=== PATIENT | female | born 1985 | race Caucasian/White ===

== ENCOUNTER 2023-04-09 01:18 | Emergency (ER) | payer OTHER, SELFPAY ==
[2023-04-09 01:27] VITALS: BP 193/97; PULSE 99; RESP 20; TEMP 36.8; O2SAT 97
[2023-04-09 01:35] VITALS: BP 180/105
[2023-04-09 01:41] VITALS: PULSE 86
--- NOTE | 2023-04-09 01:45 | ECG_ITS ---
[facility] Test Date: 2023-04-09 Pat Name: DARVIN ACOSTA Department: Room: - Gender: Female Family Practice Doctor: : 1985 Requested By: Matt Simons Order Number: [id number] Reading MD: BLAKE LEDESMA Measurements Intervals [place] Rate: 86 P: 63 HI: 164 QRS: 72 QRSD: 82 T: -55 QT: 334 QTc: 378 Interpretive Statements 1100 Sinus rhythm 4664 Twave abnormality, possible inferolateral ischemia 9150 abnormal ECG No previous ECG available for comparison Electronically Signed On 04-10-2023 10:51:44 EST by BLAKE LEDESMA
--- NOTE | 2023-04-09 01:46 | XR_ITS ---
The [address] [address] Patient Name: DARVIN ACOSTA MRN: [id number] date: 1985 Sex: F Assigned Patient Location: ER Current Patient Location: ER Accession/Order Number: [id number] Exam Date: 04/09/2023 02:20 Report Date: 04/09/2023 02:43 At the request of: PRISCA DE LA TORRE Procedure: XR chest 2V EXAM: XR chest 2V HISTORY: shortness of breath COMPARISON: None. TECHNIQUE: 2 views of the chest were obtained. FINDINGS: The cardiac silhouette is normal in size. There is interstitial prominence. There is no significant pneumothorax or pleural effusion. No acute osseous abnormality is seen. XR/XR chest 2V IMPRESSION: 1. Interstitial prominence which could represent edema and/or bronchitis. Electronically authenticated by: Osvaldo MCMANUS Date: 04/09/2023 02:43
--- NOTE | 2023-04-09 01:47 | ED_ITS ---
HPI - SOB/Dyspnea General Chief Complaint: Shortness of Breath/Dyspnea Stated Complaint: sob Time Seen by Provider: 04/09/23 01:29 Source: patient Mode of arrival: walk-in Limitations: no limitations History of Present Illness HPI Narrative: 3 days of shortness of breath - worse with exertion. Patient is an asthmatic - she has been using her inhaler without any improvement. No fever or chills. No upper respiratory symptoms. Rare, dry cough. No GI or symptoms. She googled the symptoms and think I have a pulmonary embolism. She is a non- smoker, does not take BCPs, no prior history of DVT or PE. No family history of factor V Leiden, DVT or PE. No prolonged inactivity or long drives or airlines flights in the last 2 months. She stopped taking her chlorthalidone. Related Data Home Medications Medication Instructions Recorded Confirmed chlorthalidone 25 mg tablet mg 04/09/23 lisdexamfetamine 40 mg capsule mg 04/09/23 (Vyvanse) losartan 50 mg tablet mg 04/09/23 lurasidone 60 mg tablet mg 04/09/23 meloxicam 15 mg tablet mg 04/09/23 potassium chloride 10 mEq meq PO 04/09/23 tablet,extended release Previous Rx's Medication Instructions Recorded prednisone 20 mg tablet 40 mg (2 x 20 mg) PO DAILY #10 tabs 04/09/23 Allergies Allergy/AdvReac Type Severity Reaction Status Date / Time No Known Drug Allergies Allergy Verified 04/09/23 01:32 [facility] Social History Smoking status: Never smoker Exam Narrative Exam Narrative: Nurses notes and vital signs reviewed and patient is not hypoxic. afebrile General: Well-appearing and in no apparent distress. Skin: Warm, dry, no pallor noted. No rash. Cardiovascular: Regular Rate and Rhythm without murmur, gallop or rub. Respiratory: No accessory muscle use or respiratory distress. Lungs are clear to auscultation, no wheezing, rales or rhonchi Musculoskeletal: normal ROM, no calf or popliteal tenderness, no lower extremity edema/swelling GI: Abdomen is soft, non-distended. Normal bowel sounds. Obese. No tenderness to palpation. No rebound, guarding, or rigidity noted. Neurological: A&O x4. No cranial nerve dysfunction observed. No truncal ataxia. Moves all extremities. Sensation intact. Psychiatric: Cooperative and interactive. Normal mood and affect. Constitutional Vital Signs, click to edit/add: Last Vital Signs Temp 98.2 F 04/09/23 01:27 Pulse 83 04/09/23 02:38 Resp 24 04/09/23 02:38 BP 166/93 H 04/09/23 02:37 Pulse Ox 97 04/09/23 02:38 O2 Del Method Room Air 04/09/23 01:41 Course Vital Signs Vital signs: Vital Signs Temperature 98.2 F 04/09/23 01:27 Pulse Rate 99 H 04/09/23 01:27 Respiratory Rate 20 04/09/23 01:27 Blood Pressure 193/97 H 04/09/23 01:27 Pulse Oximetry 97 04/09/23 01:27 Oxygen Delivery Method Room Air 04/09/23 01:27 Temperature 98.2 F 04/09/23 01:27 Pulse Rate 83 04/09/23 02:38 Respiratory Rate 24 04/09/23 02:38 Blood Pressure 166/93 H 04/09/23 02:37 Pulse Oximetry 97 04/09/23 02:38 Oxygen Delivery Method Room Air 04/09/23 01:41 MDM - SOB/Dyspnea MDM Narrative Medical decision making narrative: EKG obtained and reviewed by me. My analysis is detailed below. 2 view chest x-ray per radiologist = central inflam/bronchitis. screening D-dimer obtained and negative. Patient dicharged home with prescription for prednisone. I asked the ED nurse to give the patient a spacer to use with her albuterol inhaler at home. Lab Data Attestation: I reviewed the patient's lab results. Labs: Lab Results 04/09/23 Range/Units 01:50 D-Dimer 0.33 (<=0.59) mg/L FEU Imaging Data Chest x-ray: Radiologist's impression: Patient Name: DARVIN ACOSTA MRN: [facility]:[id number] date: 1985 Sex: F Assigned Patient Location: ER Current Patient Location: ER Accession/Order Number: [id number] Exam Date: 04/09/2023 02:20 Report Date: 04/09/2023 02:43 At the request of: PRISCA DE LA TORRE Procedure: XR chest 2V EXAM: XR chest 2V HISTORY: shortness of breath COMPARISON: None. TECHNIQUE: 2 views of the chest were obtained. FINDINGS: The cardiac silhouette is normal in size. There is interstitial prominence. There is no significant pneumothorax or pleural effusion. No acute osseous abnormality is seen. IMPRESSION: 1. Interstitial prominence which could represent edema and/or bronchitis. Electronically authenticated by: Osvaldo MCMANUS Date: 04/09/2023 02:43 ECG Data Attestation: I personally reviewed and interpreted this ECG as follows: Interpretation: EKG interpretation: Emergency Department physician interpretation. Normal sinus rhythm at 86bpm. Normal axis, normal intervals and no ST segment elevation. Subtle ST depression in leads V4-V6 and II, II and aVF. Discharge Plan Discharge Chief Complaint: Shortness of Breath/Dyspnea Clinical Impression: Asthma with acute exacerbation, Bronchitis Patient Disposition: Home, Self-Care Time of Disposition Decision: 02:49 Prescriptions / Home Meds: New prednisone 20 mg tablet 40 mg PO DAILY Qty: 10 0RF No Action losartan 50 mg tablet meloxicam 15 mg tablet potassium chloride 10 mEq tablet extended release PO chlorthalidone 25 mg tablet lisdexamfetamine [Vyvanse] 40 mg capsule lurasidone 60 mg tablet Instructions: Asthma (ED), Acute Bronchitis (ED) Stand Alone Forms: Portal Instructions Referrals: Physician,Non-Staff, MD [Primary Care Provider] - 1 week
[2023-04-09 02:31] LABS: D Dimer 0.33 mg/L FEU (<=0.59)
[2023-04-09 02:37] VITALS: BP 166/93; PULSE 84; RESP 15; O2SAT 98
[2023-04-09 02:38] VITALS: PULSE 83; RESP 24; O2SAT 97
[2023-04-09 03:00] VITALS: BP 167/93; PULSE 91; RESP 14; O2SAT 98
== END 2023-04-09 03:04 | disposition home or self-care (01) ==
PROVIDERS: Emergency Provider Emergency Medicine
DX: J45.901 Unspecified asthma with (acute) exacerbation (principal); E66.9 Obesity, unspecified; Z79.899 Other long term (current) drug therapy
CPT/HCPCS: 36415; 71046; 85378; 93005; 99285